=== PATIENT | female | born 1985 | race Caucasian/White ===

== ENCOUNTER 2017-02-14 10:03 | Emergency (ER) | payer MEDICAID ==
[~2017-02-14] VITALS: Ht 161.3 cm; Wt 71.1 kg
[~2017-02-14 10:03] MED LIST: IBUP800T23 PO
[2017-02-14 10:06] VITALS: BP 116/70; PULSE 82; RESP 16; TEMP 98.4; O2SAT 97
[2017-02-14] MEDS ORDERED: METH40TA PO (10:09)
--- NOTE | 2017-02-14 10:46 | PD ---
HPI Chief Complaint: Musculoskeletal Complaint Time Seen by Provider: 10:33 Travel History International Travel<30 days: No Contact w/Intl Traveler<30days: No Traveled to known affect area: No History of Present Illness HPI 31-year-old female here for evaluation of left knee and ankle pain after a mechanical fall that occurred this morning. The patient reports that she was at her child's school for their field day when a young child ran into her, and she tripped on a hose. She twisted her left knee and landed on its, sustaining a facial abrasions to the anterior knee. She was able to ambulate after this occurred. Pain is moderate, constant, worse with movement and palpation. She drove herself here. She denies sustaining any other injuries. No head, neck, or back pain. States that her last tetanus was 2 years ago. PFSH Past Medical History Asthma: Yes (CHILDHOOD) Diminished Hearing: No Immunizations Current: No ?: Not : 4 Para: 3 Miscarriage: 1 : 0 Ovarian Cysts: Yes (HX OF) Tubal Ligation: Yes Past Surgical History Abdominal Surgery: Yes Appendectomy: Yes Cholecystectomy: Yes Tonsillectomy: Yes Other Surgery: Yes (spleen surgery) Social History Alcohol Use: No ("RARELY") Tobacco Use: Yes (1/2 PPD) Substance Use: No Allergies-Medications (Allergen,Severity, Reaction): Coded Allergies: No Known Allergies (Verified , 02/14/17) Reported Meds & Prescriptions Reported Meds & Active Scripts Active Reported Methadone (Methadone HCl) 40 Mg Tab 40 Mg PO DAILY Review of Systems Except as stated in HPI: all other systems reviewed are Neg Physical Exam Narrative GENERAL: Well-developed, well-nourished, comfortable, no acute distress. SKIN: Focused skin assessment warm/dry. Left anterior knee with superficial abrasions, no lacerations. HEAD: Atraumatic. Normocephalic. EYES: Pupils equal and round. No scleral icterus. No injection or drainage. NECK: Trachea midline. No JVD. No midline vertebral step-off or tenderness. CARDIOVASCULAR: Regular rate and rhythm. Bilateral dorsalis pedis pulses are brisk and equal. MUSCULOSKELETAL: Left anterior knee with moderate edema, no obvious bony deformity, normal range of active and passive motion. Left lateral and medial ankle with mild edema with moderate diffuse tenderness, with normal range of motion active and passive motion. All compartments in left lower extremity are supple. NEUROLOGICAL: Awake and alert. No obvious cranial nerve deficits. Motor grossly within normal limits. Normal speech. PSYCHIATRIC: Appropriate mood and affect; insight and judgment normal. Data Data Last Documented VS Vital Signs Date Time Temp Pulse Resp B/P Pulse Ox O2 Delivery O2 Flow Rate FiO2 02/14/17 10:06 98.4 82 16 116/70 97 Orders Knee, Complete (4vws) (02/14/17 ) Ankle, Complete (Onn1isy) (02/14/17 ) Ibuprofen (Motrin) (02/14/17 11:00) Wound Care (02/14/17 11:10) Support Splint (02/14/17 11:10) Crutches (02/14/17 11:10) MDM Medical Decision Making Medical Screen Exam Complete: Yes Emergency Medical Condition: Yes Differential Diagnosis Left knee fracture, left ankle fracture, left knee sprain, left ankle sprain, ligamentous injury Narrative Course Vital signs are within normal limits. Left knee x-ray: No acute disease. Left ankle x-ray: No acute disease. Patient was made aware of all findings. Left anterior knee abrasion irrigated and bacitracin and sterile dressing applied by my tech. Left knee placed in a knee immobilizer. Patient given crutches as well as instructions on how to use them. RICE endorsed. She is stable for discharge home out patient follow-up. I will give her the name of the orthopedic surgeon within the follow-up with in the next 1-2 weeks. She was informed on when to return to the emergency department. Diagnosis Primary Impression: Left knee injury Qualified Code: S89.92XA - Left knee injury, initial encounter Additional Impressions: Left ankle injury Qualified Code: S99.912A - Left ankle injury, initial encounter Abrasion, left knee, initial encounter Referrals: Ameya Orozco MD 1 week Orthopedist Primary Care Physician 3 days Additional Instructions: Follow-up with a primary care physician this week. Follow-up with orthopedic surgeon Dr. Orozco or an orthopedist of your choice in the next 1-2 weeks. Return to the emergency department for worsening symptoms or any other concerns. Scripts Tramadol 50 Mg Tab50 Mg PO Q6H PRN (PAIN) #10 TAB Ref 0 Prov:Vadim Troy MD 02/14/17 Disposition: 01 DISCHARGE HOME Condition: Stable Vadim Troy MD February 14, 2017 10:46
[2017-02-14] MEDS ORDERED: IBUPROFEN 600 MG TAB PO ONE (11:00)
--- NOTE | 2017-02-14 11:04 | RADHPO ---
EXAM DATE/TIME: 02/14/2017 10:23 [facility] COMPARISON: No previous studies available for comparison. INDICATIONS : Left ankle pain & abrasions post fall. MEDICAL HISTORY : Asthma. Ovarian cyst. SURGICAL HISTORY : Tonsillectomy. Tubal ligation. Cholecystectomy. Appendectomy. Spleen surgery. ENCOUNTER: Initial ACUITY: 1 day PAIN SCORE: 10/10 LOCATION: Left ankle FINDINGS: Three view exam was performed of the left ankle. The bony structures are in normal alignment. No ev idence of fracture, dislocation, or soft tissue swelling. The ankle mortise is intact. No radiopaqu e foreign bodies are seen. Bony mineralization is normal. CONCLUSION: No acute disease. Amilcar Polanco MD on February 14, 2017 at 11:01 Board Certified Radiologist. This report was verified electronically.
--- NOTE | 2017-02-14 11:07 | RADHPO ---
EXAM DATE/TIME: 02/14/2017 10:25 [facility] COMPARISON: No previous studies available for comparison. INDICATIONS : Left knee pain/abrasions post fall. MEDICAL HISTORY : Asthma. Ovarian cyst. SURGICAL HISTORY : Tonsillectomy. Appendectomy. Cholecystectomy. Tubal ligation. Spleen surgery. ENCOUNTER: Initial ACUITY: 1 day PAIN SCORE: 9/10 LOCATION: Left anterior knee FINDINGS: Four view examination of the left knee demonstrates no evidence of fracture or dislocation. Bony min eralization is normal. The articular surfaces are intact. The suprapatellar soft tissues have a nor mal configuration. CONCLUSION: No acute disease. Amilcar Polanco MD on February 14, 2017 at 11:04 Board Certified Radiologist. This report was verified electronically.
[2017-02-14] MEDS ORDERED: TRAM50TA PO (11:16)
== END 2017-02-14 11:29 | disposition home or self-care (01) ==
LOC: PHEFT 10:03
DX: S89.92XA Unspecified injury of left lower leg, initial encounter (principal); S99.912A Unspecified injury of left ankle, initial encounter; S80.212A Abrasion, left knee, initial encounter; F17.200 Nicotine dependence, unspecified, uncomplicated; Z87.42 Personal history of other diseases of the female genital tract; W01.0XXA Fall on same level from slipping, tripping and stumbling without subsequent striking against object, initial encounter
CPT/HCPCS: 73564; 73610; 99284; E0113; L1830

== ENCOUNTER 2017-09-29 23:23 | Emergency (ER) | payer OTHER, MEDICAID ==
[~2017-09-29] VITALS: Ht 160 cm; Wt 74.0 kg
[~2017-09-29 23:23] MED LIST changes: -IBUP800T23 PO; +METH40TA PO; +TRAM50TA PO
[2017-09-29 23:26] VITALS: BP 134/86; PULSE 86; RESP 16; TEMP 99.3; O2SAT 96
--- NOTE | 2017-09-30 00:18 | PD ---
HPI Chief Complaint: Cold / Flu Symptoms Time Seen by Provider: 00:10 Travel History International Travel<30 days: No Contact w/Intl Traveler<30days: No Traveled to known affect area: No History of Present Illness HPI 32-year-old female presents for evaluation. For 2 days she has had cough, congestion, chills. The cough is productive with yellow sputum. She reports that her daughter had similar symptoms recently. No aggravating or alleviating factors. Denies rash, recent travel. No other complaints. PFSH Past Medical History Asthma: Yes (CHILDHOOD) Diminished Hearing: No Immunizations Current: Yes Tetanus Vaccination: < 5 Years Influenza Vaccination: No ?: Not LMP: 09/29/17 : 4 Para: 3 Miscarriage: 1 : 0 Ovarian Cysts: Yes (HX OF) Tubal Ligation: Yes Past Surgical History Abdominal Surgery: Yes Appendectomy: Yes Cholecystectomy: Yes Tonsillectomy: Yes Other Surgery: Yes (spleen surgery) Social History Alcohol Use: No Tobacco Use: Yes (1/2 PPD) Substance Use: No Allergies-Medications (Allergen,Severity, Reaction): Coded Allergies: No Known Allergies (Verified Adverse Reaction, Unknown, 09/29/17) Reported Meds & Prescriptions Reported Meds & Active Scripts Active Reported Methadone (Methadone HCl) 40 Mg Tab 40 Mg PO DAILY Review of Systems Except as stated in HPI: all other systems reviewed are Neg Physical Exam Narrative GENERAL: Well-nourished female in no acute distress SKIN: Warm and dry. HEAD: Atraumatic. Normocephalic. EYES: Pupils equal and round. No scleral icterus. No injection or drainage. ENT: No nasal bleeding or discharge. Mucous membranes pink and moist. NECK: Trachea midline. No JVD. CARDIOVASCULAR: Regular rate and rhythm. No murmur appreciated. RESPIRATORY: No accessory muscle use. Clear to auscultation. Breath sounds equal bilaterally. GASTROINTESTINAL: Abdomen soft, non-tender, nondistended. Hepatic and splenic margins not palpable. MUSCULOSKELETAL: No obvious deformities. No clubbing. No cyanosis. No edema. NEUROLOGICAL: Awake and alert. No obvious cranial nerve deficits. Motor grossly within normal limits. Normal speech. PSYCHIATRIC: Appropriate mood and affect; insight and judgment normal. Data Data Last Documented VS Vital Signs Date Time Temp Pulse Resp B/P (MAP) Pulse Ox O2 Delivery O2 Flow Rate FiO2 09/29/17 23:26 99.3 86 16 134/86 (102) 96 Room Air Orders Orders Influenzae A/B Antigen (09/29/17 23:59) Ed Discharge Order (09/30/17 01:20) MDM Medical Decision Making Medical Screen Exam Complete: Yes Emergency Medical Condition: Yes Medical Record Reviewed: Yes Differential Diagnosis Influenza, bronchitis, pneumonia, sinusitis, rhinitis Narrative Course 32-year-old female with 2 days of cough and congestion. She appears well in physical examination is unremarkable. An influenza antigen test was performed and was negative. I suspect a viral upper respiratory infection and conservative therapy has been recommended. She is stable for discharge. Diagnosis Primary Impression: Upper respiratory infection Additional Instructions: Stay well hydrated well-nourished, get plenty of rest. Use [id number] cough suppressants and nasal decongestants as needed. Return for any emergent medical conditions. Med/Other Pt SpecificInfo: No Change to Meds Disposition: 01 DISCHARGE HOME Warren Oreilly Sep 30, 2017 00:18
== END 2017-09-30 01:54 | disposition home or self-care (01) ==
LOC: NEPD 23:23
DX: J06.9 Acute upper respiratory infection, unspecified (principal)
CPT/HCPCS: 87804; 99282

== ENCOUNTER 2017-12-10 00:46 | Emergency (ER) | payer OTHER, MEDICAID ==
[~2017-12-10] VITALS: Ht 160 cm; Wt 74.5 kg
[~2017-12-10 00:46] MED LIST changes: -TRAM50TA PO
[2017-12-10 00:51] VITALS: BP 98/59; PULSE 71; RESP 14; TEMP 97.9; O2SAT 96
[2017-12-10] MEDS ORDERED: METH10TA PO (01:05)
[2017-12-10] MEDS ORDERED: BACITRACIN TOP OINT 15 GM TUBE TOPICAL ONE (02:30)
[2017-12-10] MEDS ORDERED: SULFAMETHOXAZOLE-TRIMETHOPRIM DS 800-160 MG TAB PO ONE (02:30)
[2017-12-10] MEDS ORDERED: BACI500O9 TOPICAL (02:32)
[2017-12-10] MEDS ORDERED: BACT800T5 PO (02:32)
--- NOTE | 2017-12-10 02:32 | PD ---
HPI Chief Complaint: Skin Problem Time Seen by Provider: 01:13 Travel History International Travel<30 days: No Contact w/Intl Traveler<30days: No Traveled to known affect area: No History of Present Illness HPI Patient is having a bruising lump on her breast left for the last 3 days today at work it popped and mild purulence and bleeding came out. She has no history of MRSA she is not on antibiotic she has not seen another doctor for this and she comes in complaining mainly of pain and tenderness to the medial lower aspect of her breast is not near the nipple it is mostly a skin surface like folliculitis possible PFSH Past Medical History Asthma: Yes (CHILDHOOD) Diminished Hearing: No Immunizations Current: Yes Tetanus Vaccination: < 5 Years Influenza Vaccination: No ?: Not : 4 Para: 3 Miscarriage: 1 : 0 Ovarian Cysts: Yes (HX OF) Tubal Ligation: Yes Past Surgical History Abdominal Surgery: Yes Appendectomy: Yes Cholecystectomy: Yes Tonsillectomy: Yes Other Surgery: Yes (spleen surgery) Social History Alcohol Use: No Tobacco Use: Yes (/2 PPD) Substance Use: Yes (former opiod user ) Allergies-Medications (Allergen,Severity, Reaction): Coded Allergies: No Known Allergies (Verified Adverse Reaction, Unknown, 12/10/17) Reported Meds & Prescriptions Reported Meds & Active Scripts Active Bacitracin Topical 500 Unit/Gm Oint 1 Applic TOPICAL TID Bactrim DS (Sulfamethoxazole-Trimethoprim) 800-160 Mg Tab 1 Tab PO BID Reported Methadone (Methadone HCl) 10 Mg Tab 100 Mg PO DAILY Review of Systems Except as stated in HPI: all other systems reviewed are Neg Skin: Positive Lesions (infection weeping pus and blood today left breast) Physical Exam Narrative GENERAL: Patient nontoxic no severe distress SKIN: Warm and dry. HEAD: Atraumatic. Normocephalic. EYES: Pupils equal and round. No scleral icterus. No injection or drainage. ENT: No nasal bleeding or discharge. Mucous membranes pink and moist. NECK: Trachea midline. No JVD. CARDIOVASCULAR: Regular rate and rhythm. Breast left breast has a very small superficial erosion with mild bleeding no smell of pus no sign of pus and there is no induration or cellulitis around it RESPIRATORY: No accessory muscle use. Clear to auscultation. Breath sounds equal bilaterally. GASTROINTESTINAL: Abdomen soft, non-tender, nondistended. Hepatic and splenic margins not palpable. MUSCULOSKELETAL: Extremities without clubbing, cyanosis, or edema. No obvious deformities. NEUROLOGICAL: Awake and alert. No obvious cranial nerve deficits. Motor grossly within normal limits. Five out of 5 muscle strength in the arms and legs. Normal speech. PSYCHIATRIC: Appropriate mood and affect; insight and judgment normal. Data Data Last Documented VS Vital Signs Date Time Temp Pulse Resp B/P (MAP) Pulse Ox O2 Delivery O2 Flow Rate FiO2 12/10/17 02:54 97.8 75 16 112/60 (77) 98 Orders Orders Wound Culture And Gram Stain (12/10/17 02:14) Sulfamet-Trimeth Ds 800-160 Mg (Bactrim (12/10/17 02:30) Bacitracin Oint (Baciguent Oint) (12/10/17 02:30) Ed Discharge Order (12/10/17 02:41) MDM Medical Decision Making Medical Screen Exam Complete: Yes Emergency Medical Condition: Yes Differential Diagnosis skin infection vs abscess vs cellulitis vs puncture wound other Narrative Course pt exam no indurated area and no abscess to I and D bactrim DS and bacitracim topical applied in ER and RX given to follow up outpt wound culture sends to lab Diagnosis Primary Impression: Skin infection Patient Instructions: Breast Abscess Drainage (DC), General Instructions Scripts Bacitracin Topical (Bacitracin Topical) 500 Unit/Gm Oint 1 APPLIC TOPICAL TID for Infection, #30 GM 0 Refills Prov: Jony Beasley MD 12/10/17 Sulfamethoxazole-Trimethoprim (Bactrim DS) 800-160 Mg Tab 1 TAB PO BID for Infection, #14 TAB 0 Refills Prov: Jony Beasley MD 12/10/17 Disposition: 01 DISCHARGE HOME Jony Beasley MD Dec 10, 2017 02:32
[2017-12-10 02:54] VITALS: BP 112/60; TEMP 97.8
== END 2017-12-10 02:59 | disposition home or self-care (01) ==
LOC: PHED 00:46
DX: L08.9 Local infection of the skin and subcutaneous tissue, unspecified (principal); B96.89 Other specified bacterial agents as the cause of diseases classified elsewhere; J45.909 Unspecified asthma, uncomplicated; F17.210 Nicotine dependence, cigarettes, uncomplicated
CPT/HCPCS: 86403; 87070; 99283

== ENCOUNTER 2018-02-09 16:11 | Emergency (ER) | payer MEDICAID, OTHER | END 2018-02-09 18:34 | disposition home or self-care (01) | LOC: PHEFT 16:11 | DX: J40 Bronchitis, not specified as acute or chronic (principal); F17.210 Nicotine dependence, cigarettes, uncomplicated | CPT/HCPCS: 99283 ==